=== PATIENT | female | born 1995 | race African-American/Black ===

== ENCOUNTER 2016-06-07 21:19 | Emergency (ER) | payer OTHER ==
[~2016-06-07] VITALS: Ht 167.6 cm; Wt 63.0 kg
[2016-06-07 21:24] VITALS: Ht 167.6 cm; Wt 63.0 kg
[2016-06-08] MEDS ORDERED: DIPHTH/TET/ACEL PERTUSS (ADULT) 0.5 ML VIAL IM* ONE (01:00)
[2016-06-08 01:33] VITALS: BP 110/78; PULSE 89; RESP 18; TEMP 98
--- NOTE | 2016-06-09 16:00 | ERD ---
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 The injury was to the left second finger. Patient was wearing gloves. There was mild bleeding but it was controlled on the scene. The patient states the needle had already stuck the client and then she stuck herself by accident. The patient denies any homicidal or suicidal ideation. The patient states she is unsure whether the client had any blood-borne pathogens. The patient's tetanus is not up-to-date. ROS All systems reviewed and are negative except as per history of present illness. Medications Home Meds No Active Prescriptions or Reported Meds Allergies Allergies: Coded Allergies: No Known Allergy (Unverified , 06/07/16) PMhx/Soc History of Surgery: No Anesthesia Reaction: No Hx Neurological Disorder: No Hx Respiratory Disorders: No Hx Cardiac Disorders: No Hx Psychiatric Problems: No Hx Miscellaneous Medical Probl: No Hx Alcohol Use: No Hx Substance Use: No Hx Tobacco Use: No Smoking Status: Never smoker FmHx Noncontributory for chief complaint Physical Exam Vitals Vital Signs Date Time Temp Pulse Resp B/P Pulse Ox O2 Delivery O2 Flow Rate FiO2 06/08/16 01:33 98.0 89 18 110/78 98 Room Air 06/07/16 21:24 97.6 91 20 114/60 99 Physical Exam Const: The patient is resting comfortably in no acute distress. Head: Atraumatic Eyes: Normal Conjunctiva ENT: Normal External Ears, Nose and Mouth. Neck: Full range of motion..~ No meningismus. Resp: Clear to auscultation bilaterally Cardio: Regular rate and rhythm, no murmurs Abd: Soft, non tender, non distended. Normal bowel sounds Skin: No petechiae or rashes Back: No midline or flank tenderness Ext: No cyanosis, or edema Neur: Awake and alert Psych: Normal Mood and Affect Results 24 hrs Laboratory Tests Test 06/08/16 01:33 Hepatitis B Surface Antigen NEGATIVE Hepatitis B Surface Antibody NEGATIVE Hepatitis C Antibody NEGATIVE HIV (1&2) Antibody NEGATIVE Current Medications Medications (Trade) Dose Ordered Sig/Lisa Route PRN Reason Start Time Stop Time Status Last Admin Dose Admin Diphtheria/ Tetanus/Acell Pertussis (Adacel) 0.5 ml ONCE ONCE IM* 06/08/16 01:00 06/08/16 01:11 DC 06/08/16 01:31 Procedures/MDM 20-year-old female presents secondary to needlestick injury. I have ordered routine labs required status post needlestick injury. The patient is to return here or to her doctor for further testing in 3 months and again in 6 months. The patient's tetanus was updated here. All questions and concerns were addressed. The patient was given counseling regarding safety in the workplace and had a prevent needlestick injuries in the future. The patient understands. I have low suspicion for cellulitis, sepsis, or other emergent conditions. The patient was hemodynamically stable prior to discharge. Departure Diagnosis: Primary Impression: Needlestick injury accident Condition: Fair Patient Instructions: Standard Precautions: [place] and Other [place] Referrals: VIMAL BENSON DO (PCP) [facility] YOU HAVE RECEIVED A MEDICAL SCREENING EXAM AND THE RESULTS INDICATE THAT YOU DO NOT HAVE A CONDITION THAT REQUIRES URGENT TREATMENT IN THE EMERGENCY DEPARTMENT. FURTHER EVALUATION AND TREATMENT OF YOUR CONDITION CAN WAIT UNTIL YOU ARE SEEN IN YOUR DOCTORS OFFICE WITHIN THE NEXT 1-2 DAYS. IT IS YOUR RESPONSIBILITY TO MAKE AN APPOINTMENT FOR FOLOW-UP CARE. IF YOU HAVE A PRIMARY DOCTOR --you should call your primary doctor and schedule an appointment IF YOU DO NOT HAVE A PRIMARY DOCTOR YOU CAN CALL OUR PHYSICIAN REFERRAL HOTLINE AT IF YOU CAN NOT AFFORD TO SEE A PHYSICIAN YOU CAN CHOSE FROM THE FOLLOWING [facility] [address] [facility] [address] [facility] [facility] [address] [facility] [address] [facility] [address] [facility]. [facility]. [address] Additional Instructions: Return here or with your primary care physician in 3 months from today. Return here or with your primary care physician within 6 months from today. If you are not contacted within 1 week then contact the hospital for results from your lab tests. Follow-up with your primary care physician within 1 week. Return to the emergency department immediately should you have any new or worsening symptoms, uncontrolled fevers, or other unexplained symptoms. TYE MORENO PA-C Jun 09, 2016 16:00
== END 2016-06-08 01:48 | disposition home or self-care (01) ==
LOC: FTE 21:19
DX: S61.231A Puncture wound without foreign body of left index finger without damage to nail, initial encounter (principal); W46.1XXA Contact with contaminated hypodermic needle, initial encounter; Y92.89 Other specified places as the place of occurrence of the external cause; Z23 Encounter for immunization
CPT/HCPCS: 86703; 86706; 86803; 87340; 90471; 90715

== ENCOUNTER 2017-04-24 21:51 | Emergency (ER) | END 2017-04-25 04:16 | disposition home or self-care (01) ==